=== PATIENT | male | born 1965 | race Caucasian/White ===

== ENCOUNTER 2019-09-09 14:26 | Emergency (ER) | payer BC ==
[2019-09-09 14:40] VITALS: BMI 33.3
[2019-09-09] MEDS ORDERED: SODIUM CHLORIDE 1,000 ML IV ONE (14:40)
[2019-09-09] MEDS ORDERED: ONDANSETRON 4 MG/2 ML VIAL IVPUSH ONE (14:51)
[2019-09-09] MEDS ORDERED: ONDANSETRON 4 MG/2 ML VIAL ONE (14:54)
[2019-09-09] MEDS ORDERED: diazePAM CARPU-JECT 10 MG/2 ML DISP.SYRIN IVPUSH ONE (15:02)
[2019-09-09] MEDS ORDERED: diazePAM CARPU-JECT 10 MG/2 ML DISP.SYRIN ONE (15:12)
--- NOTE | 2019-09-09 15:13 | PDOC ---
Documentation entered by Jerman Esquivel SCRIBE, acting as scribe for Genaro Guevara MD. Genaro Guevara MD: This documentation has been prepared by the Sierra murry Xhesika, SCRIBE, under my direction and personally reviewed by me in its entirety. I confirm that the documentation accurately reflects all work, treatment, procedures, and medical decision making performed by me. History of Present Illness - General Chief Complaint: Nausea/Vomiting Stated Complaint: N/V Time Seen by Provider: 09/09/19 14:28 History Source: Patient, Co-worker Exam Limitations: No Limitations - History of Present Illness Initial Comments: 09/09/19 14:59 The patient is a 54 year old male with a significant PMH of DM (poorly controlled) who presents to the emergency department for dizziness, nausea, and vomiting since 1:30pm. Patient notes he woke up this morning feeling normal , ate an omelette, but then felt slightly dizzy. Patient notes he was at work, came out the restroom when he felt sudden onset room spinning dizziness, and vomited. Pt reports his symptoms lasted for 5 minutes before slightly resolving. Pt notes he sees his PCP every 3 months, last visit was 3 weeks ago and was told his hemoglobin A1C increased to 8.8. Coworker at bedside reports, the patient told him he felt lightheaded earlier in the morning, was diaphoretic and vomiting. Coworker notes on his way to the ED the patient did not know his address. The patient denies blurry vision, focal weakness, chest pain, shortness of breath, headache Denies fever, chills, cough, diarrhea and constipation. Denies dysuria, frequency, urgency and hematuria. Allergies: NKDA NIH Stroke Scale - Last Known Well Date/Time & Onset Date Last Known Well: 09/09/19 Time Last Known Well: 13:30 - Initial Evaluation Level of consciousness: Alert Ask patient the month and their age: Answers both correctly Ask patient to open & close eyes; make fist and let go: Obeys both correctly Best gaze (horizontal eye movement): Partial gaze palsy Visual field testing: No visual field loss Facial paresis (Show teeth/raise eyebrows/close eyes tight): Normal symmetrical movement Motor Function: Left Arm: Normal Motor Function: Right Arm: Normal (extends arm 90 (or 45) degrees for 10 seconds without drift Motor Function: Left Leg: Normal (extends leg 30 degrees for 5 seconds without drift) Motor Function: Right Leg: Normal (extends leg 30 degrees for 5 seconds without drift) Limb Ataxia: No ataxia Sensory(Use pinprick test arms,legs,trunk,face/side to side): Normal Best language (Describe picture, name items, read sentences): No Aphasia Dysarthria (read several words): Normal articulation Extinction and Inattention: No abnormality - Total Score NIH Stroke Scale Score: 1 Past History - Past Medical History Allergies/Adverse Reactions: Allergies Allergy/AdvReac Type Severity Reaction Status Date / Time No Known Allergies Allergy Verified 09/09/19 14:41 Home Medications: Ambulatory Orders Glipizide [Glucotrol Xl] 5 mg PO DAILY 09/09/19 - Psycho Social/Smoking Cessation Hx Smoking History: Unknown if ever smoked Hx Alcohol Use: No Drug/Substance Use Hx: No Review of Systems - Review of Systems Able to Perform ROS?: Yes Comments:: 09/09/19 15:01 GENERAL/CONSTITUTIONAL: No fever or chills. No weakness. HEAD, EYES, EARS, NOSE AND THROAT: No change in vision. No ear pain or discharge. No sore throat. CARDIOVASCULAR: No chest pain or shortness of breath. RESPIRATORY: No cough, wheezing, or hemoptysis. GASTROINTESTINAL: + nausea, vomiting. No diarrhea or constipation. GENITOURINARY: No dysuria, frequency, or change in urination. MUSCULOSKELETAL: No joint or muscle swelling or pain. No neck or back pain. SKIN: No rash NEUROLOGIC:+dizziness. No headache, vertigo, loss of consciousness, or change in strength/sensation. ENDOCRINE: No increased thirst. No abnormal weight change. HEMATOLOGIC/LYMPHATIC: No anemia, easy bleeding, or history of blood clots. ALLERGIC/IMMUNOLOGIC: No hives or skin allergy. *Physical Exam - Vital Signs Last Vital Signs Temp Pulse Resp BP Pulse Ox 98.1 F 69 19 151/110 H 96 09/09/19 14:27 09/09/19 14:27 09/09/19 14:27 09/09/19 14:27 09/09/19 14:27 - Physical Exam 09/09/19 15:02 GENERAL: The patient is awake, alert, and oriented, in no acute distress. HEAD: Normal with no signs of trauma. EYES: + L eye upward gaze palsy. Pupils equal, round and reactive to light, extraocular movements intact, sclera anicteric, conjunctiva clear with no pallor. NECK: Normal range of motion, supple without lymphadenopathy, JVD, or masses. LUNGS: Breath sounds equal, clear to auscultation bilaterally. No wheeze/ crackles. HEART: Regular rate and rhythm, normal S1 and S2 without murmur or rub. ABDOMEN: Soft/nontender/nondistended. BS wnl. No guarding or rebound. No palpable masses. No hepatosplenomegaly. EXTREMITIES: Normal range of motion, no edema. No clubbing or cyanosis. No cords, erythema, or tenderness. SKIN: Warm, Dry, normal turgor, no rashes or lesions noted. Heart Score/ECG Review #1 ECG reviewed & interpreted by me at: 14:34 General ECG Interpretation: Sinus Rhythm, Normal Rate (80), Normal Intervals ( qtc 475), No acute ischemic changes (isolated Q in III) ED Treatment Course - LABORATORY CBC & Chemistry Diagram: 09/09/19 14:49 09/09/19 14:49 - ADDITIONAL ORDERS Additional order review: Laboratory Results 09/09/19 14:30 POC Glucometer 220 09/09/19 14:30 POC Glucometer 220 - RADIOLOGY Radiology Studies Ordered: Category Date Time Status HEAD CT (STROKE) [CT] Stat CT Scan 09/09/19 14:40 Ordered CHEST X-RAY PORTABLE* [RAD] Stat Radiology 09/09/19 14:41 Taken - Medications Given in the ED: ED Medications Discontinued Medications Generic Name Dose Route Start Last Admin Trade Name Freq PRN Reason Stop Dose Admin Ondansetron HCl 8 mg 09/09/19 14:51 09/09/19 15:01 Zofran Injection IVPUSH 09/09/19 14:52 8 mg ONCE ONE Administration Medical Decision Making - Critical Care Time Total Critical Care Time (minutes): 130 Critical Care Statement: The care of this patient involved high complexity decision making to prevent further life threatening deterioration of the patient 's condition and/or to evaluate & treat vital organ system(s) failure or risk of failure. - Medical Decision Making 09/09/19 15:08 A portion of this note was documented by scribe services under my direction. I have reviewed the details of the note, within reason, and agree with the documentation with the following case summary and management plan written by me. 54-year-old male with history of diabetes on glipizide presents with acute onset of lightheadedness/vertigo with nausea/vomiting. Patient awoke this morning with some lightheadedness, went to work and around 1:30 PM felt relatively acute onset of vertigo associated with lightheadedness and nausea/ nonbloody vomiting, per coworker became pale and diaphoretic, brought to the ED. Patient now with near resolution of vertigo, still nauseous and vomiting, denies any headache/vision change/speech change though colleague reports some word finding difficulty when patient was unable to list his address earlier. No facial asymmetry or focal deficit, patient denies any chest pain or shortness of breath, no history of syncope or vertigo. Patient is admittedly noncompliant with his glipizide and diet, hemoglobin A1c ranges in the eights. Vitals as noted, Exam as noted with neurological findings notable for upward gaze palsy on the left, otherwise no focal weakness. No current a aphasia or dysarthria. NIHSS 1. 54-year-old male diabetic with acute onset of vertigo, possible component of a aphasia, new disconjugate gaze findings on examination. Presentation most concerning for TIA/CVA, rule out peripheral vertigo. Rule out metabolic disorder such as DKA, seems less consistent with acute cardiopulmonary process. Stroke protocol initiated IV Zofran, IV Valium for dizziness Reassess, likely admission 09/09/19 15:36 on my prelim review, density near joey concerning for hemorrhage. d/w radiology , could represent tortuous vasculature, recommend MRI brain w/o contrast. 09/09/19 15:[address] Carlin of ns, not consistent with hemorrhage - ? vascular malformation. Agrees with MRI, would add MRA. Imaging ordered, clinically unchanged, awaiting MR for dispo, possibly transfer. 09/09/19 16:50 labs wnl, elevated cholesterol. no DKA, UA clear. MR images pending, will discuss dispo with [facility]. 09/09/19 17:45 MRI reveals no hemorrhage/infarct but vertebral atherosclerosis with compression of medulla. clinically unchanged. d/w Dr. Carlin, recommends neurovascular evaluation. Pt requested transfer to [facility]. Discussed with Dr. Mendez of neurovascular team, accepts as code stroke transfer to ED. no further intervention needed now. 09/09/19 18:46 possible L vertebral intraluminal thrombus/embolism on MRA. recommend CTA correlation but patient en route to endovascular assessment at [facility] via stroke team. Dr. Mendez updated with findings, proceed with transfer plan, will ensure pt receives CTA upon arrival. Discharge - Discharge Information Problems reviewed: Yes Clinical Impression/Diagnosis: Vertigo, Atherosclerosis of vertebral artery Condition: Critical Disposition: TRANSFER ACUTE CARE/OTHER HOSP - Follow up/Referral - Patient Discharge Instructions - Post Discharge Activity - Transfer to Acute Care Facility Receiving Facility Name: [facility] [address] Accepting Physician:: Dr. Mendez (neurovascular)
[2019-09-09 15:15] LABS: BASO % 0.6 % (0-2.0); EOS % 1.1 % (0-4.5); HEMOGLOBIN 14.3 GM/dl (11.7-16.9); LYMPH % 32.6 % (8-40); MCHC 31.8 g/dl (32.0-35.9); MEAN CELL VOLUME 75.3 fl (80-96); MONO % 8.4 % (3.8-10.2); NEUT % 57.3 % (42.8-82.8); PLATELET COUNT 222 K/MM3 (134-434); RBC 5.97 M/mm3 (4.00-5.60); RDW 13.9 % (11.9-15.9); WHITE BLOOD COUNT 10.1 K/mm3 (4.0-10.8)
[2019-09-09 15:32] LABS: ACTIVATED PTT 25.7 SECONDS (25.2-36.5)
[2019-09-09 15:37] LABS: ALBUMIN 4.1 g/dl (3.4-5.0); BILIRUBIN,TOTAL 0.4 mg/dl (0.2-1); CALCIUM 9.1 mg/dl (8.5-10); CREATININE 0.8 mg/dl (0.55-1.3); INR 1.14 (0.82-1.09); POTASSIUM 3.7 mmol/L (3.5-5.1); PROTHROMBIN TIME (PATIENT) 12.7 SEC (10.2-13.0); TOT PROT 7.4 g/dl (6.4-8.2)
[2019-09-09 16:03] LABS: VENOUS PH 7.32 (7.31-7.41)
[2019-09-09 16:09] LABS: VENOUS PO2 < 49 mmHg (28-48)
[2019-09-09 18:18] VITALS: BP 150/106; PULSE 88; TEMP 98.2
--- NOTE | 2019-09-10 10:17 | EKG ---
Test Reason : Blood Pressure : / mmHG Vent. Rate : 080 BPM Atrial Rate : 080 BPM P-R Int : 166 ms QRS Dur : 112 ms QT Int : 412 ms P-R-T Axes : 044 013 044 degrees QTc Int : 475 ms NORMAL SINUS RHYTHM NORMAL ECG NO PREVIOUS ECGS AVAILABLE Confirmed by Andrew Joseph MD ([id number]) on 09/10/2019 10:16:48 AM Referred By: SEDRICK TYLER Confirmed By:Andrew Joseph MD
== END 2019-09-09 18:20 | disposition short-term general hospital (02) ==
LOC: FER 14:26
PROC: 3E033NZ Introduction of Analgesics, Hypnotics, Sedatives into Peripheral Vein, Percutaneous Approach (ICD-10-PCS; principal; 2019-09-09)
PROC: 3E0337Z Introduction of Electrolytic and Water Balance Substance into Peripheral Vein, Percutaneous Approach (ICD-10-PCS; 2019-09-09)
DX: I67.2 Cerebral atherosclerosis (principal); R42 Dizziness and giddiness; E11.65 Type 2 diabetes mellitus with hyperglycemia; Z79.84 Long term (current) use of oral hypoglycemic drugs
CPT/HCPCS: 36415; 70450-TC; 70544-TC; 70551-TC; 71045-TC-FY; 80053; 81003; 81015; 82010; 82465; 82550; 82553; 82803; 82962; 83718; 83721; 84478; 84484; 85025; 85610; 85730; 86850; 86900; 86901; 93005; 99285-25; J7030